=== PATIENT | male | born 2005 | race Hispanic/Latino ===

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

== ENCOUNTER 2023-04-24 10:15 | Emergency (ER) | payer SELFPAY ==
[2023-04-24] MEDS ORDERED: Ondansetron ODT 4 MG TAB ONE (11:09)
[2023-04-24] MEDS ORDERED: Sucralfate 1 GM/10 ML UDCUP ONE (11:09)
[2023-04-24] MEDS ORDERED: Lidocaine 2% Viscous Solution 10 ML, Aluminum & Magnesium Hydroxide 30 ML SSW SCH (11:30)
== END 2023-04-24 12:34 | disposition home or self-care (01) ==
LOC: ERS 10:15
DX: K29.70 Gastritis, unspecified, without bleeding (principal); R11.10 Vomiting, unspecified
CPT/HCPCS: 99283; Q0162

== ENCOUNTER 2024-01-12 19:38 | Emergency (ER) | payer SELFPAY | END 2024-01-12 21:13 | LOC: ERS 19:38 | DX: F10.129 Alcohol abuse with intoxication, unspecified (principal); F17.210 Nicotine dependence, cigarettes, uncomplicated | CPT/HCPCS: 93005; 99284 ==